=== PATIENT | female | born 1960 | race Caucasian/White ===

== ENCOUNTER 2022-12-31 00:55 | Emergency (ER) | payer MEDICAID ==
[~2022-12-31] VITALS: Ht 152.4 cm; Wt 136.0 kg
[~2022-12-31 00:55] MED LIST: GLIP2.5T3 PO; HYDR25TA PO; LOSA100T33 MT; METF500T PO
[2022-12-31 01:15] VITALS: BP 169/73
[2022-12-31 02:02] LABS: CLARITY URINE CLEAR (CLEAR); COLOR URINE YELLOW (YELLOW); KETONES URINE NEGATIVE (NEGATIVE); LEUKOCYTE ESTERASE URINE NEGATIVE (NEGATIVE); NITRITE URINE NEGATIVE (NEGATIVE); OCCULT BLOOD URINE 3+ (NEGATIVE); PH URINE 6.5 (4.5-8.0); PROTEIN URINE NEGATIVE (NEGATIVE); SPECIFIC GRAVITY URINE 1.025 (1.005-1.030)
[2022-12-31 04:35] LABS: BASOPHILS % 0.8 % (0.0-2.0); EOSINOPHILS % 2.8 % (0.0-5.0); HEMATOCRIT. 41.1 % (36.0-48.0); HEMOGLOBIN. 13.6 g/dL (12.0-16.0); LYMPHOCYTES % 38.4 % (20.0-50.0); MEAN CORPUSCULAR HEMOGLOBIN 29.4 pg (28.0-32.0); MEAN CORPUSCULAR VOLUME 88.5 fL (81.0-99.0); MEAN PLATELET VOLUME 10.3 fl (7.4-10.4); MONOCYTES % 5.5 % (2.0-8.0); NEUTROPHILS % 52.5 % (40.0-76.0); PLATELET 202 x1000/uL (130-400); RED BLOOD CELL COUNT 4.64 mill/uL (4.2-5.4); RED CELL DISTRIBUTION WIDTH 14.3 % (11.6-14.6)
[2022-12-31 04:42] LABS: CHLORIDE 103 mEq/L (98-107)
[2022-12-31] MEDS ORDERED: CIPR500T5 MT ×2 (05:23)
[2022-12-31] MEDS ORDERED: CEFP200T13 MT (05:25)
== END 2022-12-31 05:38 | disposition home or self-care (01) ==
LOC: ER 00:55
DX: N39.0 Urinary tract infection, site not specified (principal); E11.65 Type 2 diabetes mellitus with hyperglycemia; I10 Essential (primary) hypertension; J45.909 Unspecified asthma, uncomplicated
CPT/HCPCS: 36415; 80053; 81003; 85025; 87210; 99284; Z7610